=== PATIENT | female | born 1980 | race Caucasian/White ===

== ENCOUNTER 2019-03-26 21:25 | Emergency (ER) | payer SELFPAY ==
[~2019-03-26] VITALS: Ht 162.6 cm; Wt 97.5 kg
--- NOTE | 2019-03-26 21:28 | NUR ---
Patient to ER bed H1 to gown for evaluation. Side rails up.
--- NOTE | 2019-03-26 21:30 | NUR ---
Pt brought by police officers, ambulatory, pt presents to ER for medical clearance, pt is being transfer to [facility] for poss ETOH, pt denies pain, skin pink and warm, cap refill <3, VSS, respirations even and unlabored.
--- NOTE | 2019-03-26 21:35 | NUR ---
Dr Macias at bedside examining patient
[2019-03-26 21:36] VITALS: BP_SYST 147
[2019-03-26 21:40] VITALS: BP_SYST 147
--- NOTE | 2019-03-26 21:47 | NUR ---
Patient given written and verbal discharge instructions and verbalizes understanding. ER MD discussed with patient the results and treatment provided. Patient in stable condition. ID arm band removed. No Rx given. Patient educated on pain management and to follow up with PMD. Pain Scale 2/10 tolerable for patient . Opportunity for questions provided and answered. Medication side effect fact sheet provided.
== END 2019-03-26 21:47 ==
LOC: SED 21:25
DX: F10.10 Alcohol abuse, uncomplicated (principal); Y90.9 Presence of alcohol in blood, level not specified
CPT/HCPCS: 99283